=== PATIENT | female | born 1960 ===

== ENCOUNTER 2019-04-15 12:51 | Outpatient (CLI) | payer OTHER, SELFPAY | END 2019-04-15 12:52 | disposition home or self-care (01) | LOC: ANHBWCAUD 12:52 | DX: H91.13 Presbycusis, bilateral (principal); H90.3 Sensorineural hearing loss, bilateral | CPT/HCPCS: 92557; 92567 ==

== ENCOUNTER 2019-05-08 10:11 | Outpatient (RCR) | payer OTHER, SELFPAY | END 2019-08-06 23:59 | disposition home or self-care (01) | LOC: ANHBWCAUD 10:11 | DX: Z46.1 Encounter for fitting and adjustment of hearing aid (principal) | CPT/HCPCS: V5160; V5261 ==